=== PATIENT | female | born 1970 | race Caucasian/White ===

== ENCOUNTER 2019-01-08 10:02 | Day surgery (SDC) | payer OTHER ==
[~2019-01-08] VITALS: Ht 162.6 cm; Wt 74.4 kg
[2019-01-08] MEDS ORDERED: CEFAZOLIN SODIUM 1 GM/D5W PM 50 ML IV SCH (10:30)
[2019-01-08] MEDS ORDERED: BUPIVACAINE-MPF/EPI 0.5% 30 ML VIAL INJ ONE (11:00)
[2019-01-08] MEDS ORDERED: MIDAZOLAM 2 MG/2 ML VIAL ONE (11:09)
[2019-01-08] MEDS ORDERED: fentaNYL 0.05 MG/ML VIAL ONE (11:09)
[2019-01-08] MEDS ORDERED: SEVOFLURANE 250 ML BTL INH ONE (11:10)
[2019-01-08] MEDS ORDERED: PROPOFOL 200 MG/20 ML VIAL IV ONE (11:10)
[2019-01-08] MEDS ORDERED: LACTATED RINGERS 1,000 ML IV SCH (12:36)
[2019-01-08] MEDS ORDERED: diphenhydrAMINE 50 MG/ML VIAL IVP PRN (12:40)
[2019-01-08] MEDS ORDERED: MEPERIDINE 25 MG/ML SYR IVP PRN (12:40)
[2019-01-08] MEDS ORDERED: HYDROmorphone 1 MG/ML AMP IVP PRN (12:40)
[2019-01-08] MEDS ORDERED: ONDANSETRON 4 MG/2 ML VIAL IVP PRN (12:40)
== END 2019-01-08 16:00 | disposition home or self-care (01) ==
LOC: MMU 10:02 → MDS 10:02
PROVIDERS: ATTEND Surgery
DX: D21.5 Benign neoplasm of connective and other soft tissue of pelvis (principal); Z98.890 Other specified postprocedural states
CPT/HCPCS: 27047; 71045; 88304; 93005; J0690; J2250; J2704; J3010; J3490; J7120